=== PATIENT | female | born 1945 | race Hispanic/Latino ===

== ENCOUNTER 2020-01-20 17:26 | Emergency (ER) | payer MEDICARE ==
--- NOTE | 2020-01-20 17:53 | Emergency Department Report ---
HPI - General Time Seen by Provider: 01/20/20 17:40 - HPI HPI: 74-year-old female presents to the emergency department via EMS from [facility] where the patient was in group therapy as a 1013. The 1013 that was filled out by a manager social responsibility, Anahi Deleon, states that the has a "depressed affect, heightened anxiety, and verbalizes 'Im not myself'." It also says that the patient is "not attending to nutritional needs, toileting needs, wandering behaviors, aggressive behaviors" such as throwing feces. Patient is awake and oriented, AAO x3. She admits to a history of bipolar disorder and schizophrenia. It does not appear that the patient is compliant with her medications. She denies any current hallucinations or any homicidal or suicidal ideations. ED Review of Systems ROS: Stated complaint: [facility] Other details as noted in HPI Comment: All other systems reviewed and negative Constitutional: denies: chills, fever Respiratory: denies: cough, shortness of breath Cardiovascular: denies: chest pain, palpitations Gastrointestinal: denies: abdominal pain, vomiting Neurological: denies: headache, weakness Psychiatric: denies: auditory hallucinations, visual hallucinations, homicidal thoughts, suicidal thoughts Physical Exam - Physical Exam Physical Exam: GENERAL: The patient is well-developed well-nourished. HENT: Normocephalic. Atraumatic. Patient has moist mucous membranes. EYES: Extraocular motions are intact. NECK: Supple. Trachea is midline. CHEST/LUNGS: Clear to auscultation. There is no respiratory distress noted. HEART/CARDIOVASCULAR: Regular. There is no tachycardia. ABDOMEN: Abdomen is soft, nontender. Patient has normal bowel sounds. SKIN: Skin is warm and dry. NEURO: The patient is awake, alert, and oriented. Cranial nerves II through XII grossly intact. MUSCULOSKELETAL: There is no tenderness or deformity. PSYCH: Patient has some pressured speech and appears disorganized. ED Medical Decision Making - Lab Data Result diagrams: 01/20/20 18:00 01/20/20 18:00 - Medical Decision Making This patient was sent in from the [facility] as a 1013 secondary to some erratic and disorganized behavior. The patient is oriented to person, place, time but does display some disorganized thoughts and often has some pressured speech. She was seen by the psychiatric data center manager who agrees that the patient needs inpatient stabilization. The patient's labs thus far are unremarkable including CBC, metabolic panel and blood alcohol level. We are waiting for a urine sample for urinalysis and urine drug screen. If the patient has a UTI, she will need antibiotics. Otherwise I feel that the patient is medically cleared for psychiatric placement. Patient has been accepted to [facility]. Critical Care Time: No Critical care attestation.: If time is entered above; I have spent that time in minutes in the direct care of this critically ill patient, excluding procedure time. ED Disposition Clinical Impression: Acute psychosis Disposition: DC-01 TO HOME OR SELFCARE Is pt being admited?: No Condition: Stable Instructions: Bipolar Disorder (ED), Schizophrenia (ED) Additional Instructions: Please follow-up with your primary care physician and your psychiatrist soon as you are done with [facility] and able to do so. Return to the emergency department with any worsening of your symptoms, thoughts of harming herself or others, or with any acute distress. Time of Disposition: 00:25
[2020-01-20 18:12] LABS: Basophils # (Auto) 0.1 K/mm3 (0.0-0.1); Basophils % (Auto) 0.9 % (0.0-1.8); Eosinophils # (Auto) 0.1 K/mm3 (0.0-0.4); Eosinophils % (Auto) 1.5 % (0.0-4.3); Hematocrit 41.9 % (30.3-42.9); Lymphocytes # (Auto) 1.8 K/mm3 (1.2-5.4); Lymphocytes % (Auto) 21.1 % (13.4-35.0); Mean Corpuscular HGB Conc 34 % (30-34); Mean Corpuscular Volume 87 fl (79-97); Monocytes # (Auto) 0.6 K/mm3 (0.0-0.8); Monocytes % (Auto) 7.3 % (0.0-7.3); Platelet Count 317 K/mm3 (140-440)
[2020-01-20 18:56] LABS: BUN/Creatinine Ratio 15; Blood Urea Nitrogen 12 mg/dL (7-17); Calcium 9.3 mg/dL (8.4-10.2); Hemolysis Index 7
[2020-01-21 02:03] VITALS: BP 115/60
== END 2020-01-21 02:14 | disposition home or self-care (01) ==
LOC: ED 17:26
DX: F23 Brief psychotic disorder (principal)
CPT/HCPCS: 36415; 80048; 80320; 85025; G0480

== ENCOUNTER 2020-03-06 16:12 | Emergency (ER) | payer MEDICARE ==
--- NOTE | 2020-03-06 16:55 | Emergency Department Report ---
ED Fall HPI - General Chief Complaint: Extremity Injury, Upper Stated Complaint: RT ARM PAIN/DEMENTIA Time Seen by Provider: 03/06/20 16:41 Source: EMS Mode of arrival: Ambulatory Limitations: No Limitations - History of Present Illness Initial Comments: 74-year-old female with a past medical history of dementia, schizoaffective disorder, bipolar disorder [facility] from [facility] with complaints of right arm pain since fall several days ago. Patient states she was seen at a [facility] several days ago and prescribed Percocet however, it is not helping with pain. She denies head injury, headache, or neck pain. She is alert and oriented to person, place, and year. She presents with a diaper soiled in urine and states she is having difficulty changing her diaper/depends because of her right arm pain. pt's folder discovered at the bedside at 11:15pm Patient does present with discharge paperwork from [facility] from 02/28/2020 with diagnosis dislocation of right shoulder joint and closed fracture of the right humeral head with outpatient referral to orthopedics. Patient had x-rays of her right forearm, hand, humerus in the ED and apparently patient received procedural sedation with etomidate and a right arm sling was provided. Patient presents here without a right arm sling in place. Patient also has paperwork from [facility] from 03/02/2020 in which she received right elbow x-ray, shoulder x-ray, and right wrist x-rays and was diagnosed with avulsion fracture of the right humerus and prescribed Percocet for pain Current medication as per her discharge paperwork include Lasix, Zyprexa, Mysoline, and Percocet - Related Data Previous Rx's Medication Instructions Recorded Last Taken Type Divalproex Dr [Depakote Dr] 250 mg PO BID #60 tablet 01/27/20 Unknown Rx OLANzapine [ZyPREXA] 5 mg PO QDAY #30 tablet 01/27/20 Unknown Rx Propranolol LA [Inderal LA] 60 mg PO QDAY #30 capsule 01/27/20 Unknown Rx clonazePAM [KlonoPIN] 0.25 mg PO TID #90 tablet 01/27/20 Unknown Rx traZODone [Desyrel] 100 mg PO QHS #30 tablet 01/27/20 Unknown Rx Allergies Allergy/AdvReac Type Severity Reaction Status Date / Time No Known Allergies Allergy Unverified 01/20/20 20:30 ED Review of Systems ROS: Stated complaint: RT ARM PAIN/DEMENTIA Other details as noted in HPI Comment: All other systems reviewed and negative ED Past Medical Hx - Past Medical History Hx Renal Disease: No Hx Arthritis: No Hx Seizures: No Hx Dementia: No Additional medical history: bipolar - Surgical History Hx Cholecystectomy: No Hx Appendectomy: Yes Additional Surgical History: Tubal ligation - Social History Smoking Status: Never Smoker Substance Use Type: None - Medications Home Medications: Home Medications Medication Instructions Recorded Confirmed Last Taken Type Divalproex Dr [Depakote Dr] 250 mg PO BID #60 tablet 01/27/20 03/13/20 Unknown Rx OLANzapine [ZyPREXA] 5 mg PO QDAY #30 tablet 01/27/20 03/13/20 Unknown Rx Propranolol LA [Inderal LA] 60 mg PO QDAY #30 capsule 01/27/20 03/13/20 Unknown Rx clonazePAM [KlonoPIN] 0.25 mg PO TID #90 tablet 01/27/20 03/13/20 Unknown Rx traZODone [Desyrel] 100 mg PO QHS #30 tablet 01/27/20 03/13/20 Unknown Rx ED Physical Exam - General Limitations: Physical Limitation - Other Other exam information: General: No acute distress Head: Atraumatic Eyes: normal appearance ENT: Moist mucous membranes Neck: Normal appearance, no midline tenderness Chest: Clear to auscultation bilaterally, bruising to right upper lateral chest wall with tenderness to palpation CV: Regular rate and rhythm Abdomen: Soft, normal bowel sounds, nontender, nondistended, no rebound or guarding Back: Normal inspection Extremity: Tenderness to right shoulder and pain with movement of right shoulder in any direction. No tenderness to elbow, wrist, or hand able to move wrist and elbow with minimal pain Neuro: Alert O x 3, no facial asymmetry, speech clear, no gross motor sensory deficit Psych: Appropriate behavior Skin: No rash ED Course Vital Signs 03/06/20 03/06/20 03/06/20 16:51 19:34 19:41 Temperature 100.1 F H 98.7 F Pulse Rate 87 Respiratory 18 Rate Blood Pressure Blood Pressure 112/69 [Left] O2 Sat by Pulse 94 90 Oximetry 03/06/20 03/06/20 03/06/20 19:45 20:00 20:15 Temperature Pulse Rate 91 H 90 89 Respiratory 19 27 H 26 H Rate Blood Pressure 106/59 104/61 107/50 Blood Pressure [Left] O2 Sat by Pulse 96 95 93 Oximetry 03/06/20 03/06/20 03/06/20 20:30 20:45 21:00 Temperature Pulse Rate 77 76 77 Respiratory 28 H 22 24 Rate Blood Pressure 107/51 107/51 109/55 Blood Pressure [Left] O2 Sat by Pulse 95 Oximetry 03/06/20 03/06/20 03/06/20 21:15 21:30 21:45 Temperature Pulse Rate 75 88 87 Respiratory 27 H 24 33 H Rate Blood Pressure 109/55 107/55 107/55 Blood Pressure [Left] O2 Sat by Pulse 95 96 Oximetry 03/06/20 03/06/20 03/06/20 22:00 22:15 22:43 Temperature Pulse Rate 77 87 83 Respiratory 26 H 34 H 18 Rate Blood Pressure 104/55 104/55 104/55 Blood Pressure [Left] O2 Sat by Pulse 96 97 96 Oximetry 03/06/20 03/06/20 03/06/20 22:45 23:00 23:15 Temperature Pulse Rate 82 82 84 Respiratory 22 33 H 17 Rate Blood Pressure 104/55 109/50 104/55 Blood Pressure [Left] O2 Sat by Pulse 93 93 95 Oximetry 03/06/20 03/06/20 03/07/20 23:30 23:45 00:00 Temperature Pulse Rate 82 81 84 Respiratory 29 H 30 H 25 H Rate Blood Pressure 100/52 109/50 103/48 Blood Pressure [Left] O2 Sat by Pulse 98 95 97 Oximetry 03/07/20 03/07/20 03/07/20 00:15 04:31 06:01 Temperature Pulse Rate 84 88 89 Respiratory 21 15 22 Rate Blood Pressure 100/52 117/63 114/57 Blood Pressure [Left] O2 Sat by Pulse 95 96 96 Oximetry 03/07/20 03/07/20 03/07/20 07:15 07:31 07:45 Temperature Pulse Rate 92 H 93 H 89 Respiratory 18 15 22 Rate Blood Pressure 114/62 125/55 113/69 Blood Pressure [Left] O2 Sat by Pulse 96 93 95 Oximetry 03/07/20 03/07/20 03/07/20 09:01 09:15 10:45 Temperature Pulse Rate 73 86 87 Respiratory 25 H 19 21 Rate Blood Pressure 122/56 109/58 118/57 Blood Pressure [Left] O2 Sat by Pulse 97 97 96 Oximetry 03/07/20 03/07/20 03/07/20 11:01 11:31 12:15 Temperature Pulse Rate 85 91 H 87 Respiratory 26 H 18 18 Rate Blood Pressure 116/58 119/59 103/62 Blood Pressure [Left] O2 Sat by Pulse 97 96 96 Oximetry 03/07/20 03/07/20 03/07/20 12:31 12:45 13:31 Temperature Pulse Rate 96 H 86 95 H Respiratory 20 18 23 Rate Blood Pressure 102/63 115/56 114/61 Blood Pressure [Left] O2 Sat by Pulse 97 94 97 Oximetry 03/07/20 03/07/20 03/07/20 13:45 14:01 14:15 Temperature Pulse Rate 86 90 94 H Respiratory 26 H 22 15 Rate Blood Pressure 113/58 109/62 102/66 Blood Pressure [Left] O2 Sat by Pulse 97 97 95 Oximetry 03/07/20 03/07/20 08 15:31 16:23 21:59 Temperature Pulse Rate 101 H 93 H 17 L Respiratory 26 H 20 19 Rate Blood Pressure 124/70 Blood Pressure 113/63 116/57 [Left] O2 Sat by Pulse 95 98 97 Oximetry 03/07/20 03/08/20 03/08/20 22:01 03:05 03:08 Temperature Pulse Rate 84 Respiratory 19 Rate Blood Pressure 116/57 116/57 Blood Pressure 115/46 [Left] O2 Sat by Pulse 96 98 Oximetry 03/08/20 03/08/20 03/08/20 04:01 05:31 06:03 Temperature Pulse Rate Respiratory Rate Blood Pressure 90/64 115/46 104/52 Blood Pressure [Left] O2 Sat by Pulse 78 L 97 94 Oximetry 03/08/20 03/08/20 03/08/20 07:01 09:01 11:01 Temperature Pulse Rate Respiratory Rate Blood Pressure 104/52 106/46 142/64 Blood Pressure [Left] O2 Sat by Pulse 93 94 94 Oximetry 03/08/20 03/08/20 03/08/20 12:18 12:31 13:01 Temperature Pulse Rate 79 Respiratory 28 H Rate Blood Pressure 115/72 115/72 Blood Pressure 115/72 [Left] O2 Sat by Pulse 96 94 96 Oximetry 08/12/2103/08/20 03/08/20 13:30 14:01 14:31 Temperature Pulse Rate Respiratory Rate Blood Pressure 115/72 121/65 121/65 Blood Pressure [Left] O2 Sat by Pulse 80 L 87 78 L Oximetry 03/08/20 03/08/20 03/08/20 15:00 15:31 16:01 Temperature Pulse Rate Respiratory Rate Blood Pressure 121/65 121/65 119/62 Blood Pressure [Left] O2 Sat by Pulse 83 L 94 92 Oximetry 03/08/20 03/08/20 03/08/20 16:31 17:01 17:31 Temperature Pulse Rate Respiratory Rate Blood Pressure 119/62 119/62 119/62 Blood Pressure [Left] O2 Sat by Pulse 86 86 91 Oximetry 03/08/20 03/08/20 03/08/20 18:01 18:31 19:01 Temperature Pulse Rate Respiratory Rate Blood Pressure 114/72 114/72 114/72 Blood Pressure [Left] O2 Sat by Pulse 90 91 93 Oximetry 03/08/20 03/08/20 03/08/20 19:31 20:01 20:30 Temperature Pulse Rate Respiratory Rate Blood Pressure 114/72 117/63 117/63 Blood Pressure [Left] O2 Sat by Pulse 95 96 93 Oximetry 03/08/20 03/08/20 03/08/20 21:30 22:00 22:30 Temperature Pulse Rate Respiratory Rate Blood Pressure 117/63 117/63 117/63 Blood Pressure [Left] O2 Sat by Pulse 91 92 66 L Oximetry 03/08/20 03/09/20 03/09/20 22:44 00:00 00:30 Temperature Pulse Rate 86 80 Respiratory 29 H 30 H Rate Blood Pressure 117/63 109/61 109/61 Blood Pressure [Left] O2 Sat by Pulse 97 100 100 Oximetry 03/09/20 03/09/20 03/09/20 02:00 04:00 06:00 Temperature Pulse Rate 82 76 75 Respiratory 19 29 H 28 H Rate Blood Pressure 109/54 102/50 108/52 Blood Pressure [Left] O2 Sat by Pulse 96 97 99 Oximetry 03/09/20 03/09/20 03/09/20 08:00 10:00 12:00 Temperature Pulse Rate 75 80 84 Respiratory 27 H 24 24 Rate Blood Pressure 105/54 122/66 112/35 Blood Pressure [Left] O2 Sat by Pulse 100 97 99 Oximetry 08/06/20 08/06/20 08/06/20 14:00 16:00 18:00 Temperature Pulse Rate 87 79 94 H Respiratory 25 H 29 H 32 H Rate Blood Pressure 116/59 103/53 109/52 Blood Pressure [Left] O2 Sat by Pulse 96 95 96 Oximetry 03/09/20 03/09/20 03/09/20 20:00 21:20 22:00 Temperature Pulse Rate 88 82 89 Respiratory 43 H 36 H 22 Rate Blood Pressure 107/59 107/59 101/51 Blood Pressure [Left] O2 Sat by Pulse 95 96 97 Oximetry 03/10/20 03/10/20 03/10/20 00:00 02:00 04:01 Temperature Pulse Rate 133 H 82 91 H Respiratory 42 H 20 19 Rate Blood Pressure 116/47 114/53 Blood Pressure [Left] O2 Sat by Pulse 96 98 94 Oximetry 03/10/20 03/10/20 03/10/20 06:01 08:01 10:01 Temperature Pulse Rate 82 75 Respiratory 34 H 36 H Rate Blood Pressure 113/51 128/47 112/41 Blood Pressure [Left] O2 Sat by Pulse 98 98 96 Oximetry 03/10/20 12:01 Temperature Pulse Rate 83 Respiratory 33 H Rate Blood Pressure 99/54 Blood Pressure [Left] O2 Sat by Pulse 99 Oximetry - Reevaluation(s) Reevaluation #1: 03/06/20 16:55 Patient has dementia with recent fall history and recent ER evaluation at [facility]. Patient does have underlying dementia. Unable to access recent medical records and given patient's underlying dementia and will receive CT head and cervical spine in addition to x-rays - Consultations Consultation #1: 03/06/20 23:[address] Haile documentation manager surgeon. Recommends transfer to trauma center and given the fact that patient may be be developing an empyema as well as persistent traumatic fracture/dislocation of the right humerus 03/07/20 23: [address] Mckenna trauma attending about patient's pulmonary contusion. She states that since injury occurred 1 week ago, she is asymptomatic (no shortness of breath), and she does not have hypoxia she does not require transfer to a trauma hospital or even hospital admission 03/07/20 23:30 Case discussed with on-call orthopedic surgeon Dr. Goldman who states that since injury occurred 1 week ago with persistent fracture dislocation with hematoma she may follow-up in the office. 03/07/20 23:50 Case to be discussed with Dr. Haile regarding trauma attending recommendation ED Medical Decision Making - Lab Data Result diagrams: 03/10/20 11:12 03/10/20 11:12 Lab Results 03/06/20 03/06/20 03/06/20 Range/Units 17:31 17:31 17:31 WBC 19.8 H (4.5-11.0) K/mm3 RBC 3.56 L (3.65-5.03) M/mm3 Hgb 10.0 L (10.1-14.3) gm/dl Hct 31.3 (30.3-42.9) % MCV 88 (79-97) fl MCH 28 (28-32) pg MCHC 32 (30-34) % RDW 18.4 H (13.2-15.2) % Plt Count 442 H (140-440) K/mm3 Add Manual Diff Complete Total Counted 100 Seg Neutrophils % Pc Technician Seg Neuts % (Manual) 89.0 H (40.0-70.0) % Band Neutrophils % 0 % Lymphocytes % (Manual) 6.0 L (13.4-35.0) % Reactive Lymphs % (Man) 0 % Monocytes % (Manual) 5.0 (0.0-7.3) % Eosinophils % (Manual) 0 (0.0-4.3) % Basophils % (Manual) 0 (0.0-1.8) % Metamyelocytes % 0 % Myelocytes % 0 % Promyelocytes % 0 % Blast Cells % 0 % Nucleated RBC % Not Reportable Seg Neutrophils # Man 17.6 H (1.8-7.7) K/mm3 Band Neutrophils # 0.0 K/mm3 Lymphocytes # (Manual) 1.2 (1.2-5.4) K/mm3 Abs React Lymphs (Man) 0.0 K/mm3 Monocytes # (Manual) 1.0 H (0.0-0.8) K/mm3 Eosinophils # (Manual) 0.0 (0.0-0.4) K/mm3 Basophils # (Manual) 0.0 (0.0-0.1) K/mm3 Metamyelocytes # 0.0 K/mm3 Myelocytes # 0.0 K/mm3 Promyelocytes # 0.0 K/mm3 Blast Cells # 0.0 K/mm3 WBC Morphology Not Reportable Hypersegmented Neuts Not Reportable Hyposegmented Neuts Not Reportable Hypogranular Neuts Not Reportable Smudge Cells Not Reportable Toxic Granulation Not Reportable Toxic Vacuolation Not Reportable Dohle Bodies Not Reportable Pelger-Huet Anomaly Not Reportable Jet Rods Not Reportable Platelet Estimate Not Reportable Clumped Platelets Not Reportable Plt Clumps, EDTA Not Reportable Large Platelets Not Reportable Giant Platelets Not Reportable Platelet Satelliting Not Reportable Plt Morphology Comment Not Reportable RBC Morphology Normal Dimorphic RBCs Not Reportable Polychromasia Not Reportable Hypochromasia Not Reportable Poikilocytosis Not Reportable Anisocytosis Not Reportable Microcytosis Not Reportable Macrocytosis Not Reportable Spherocytes Not Reportable Pappenheimer Bodies Not Reportable Sickle Cells Not Reportable Target Cells Not Reportable Tear Drop Cells Not Reportable Ovalocytes Not Reportable Helmet Cells Not Reportable Raines[place] Bodies Not Reportable [place] Rings Not Reportable [place] Cells Not Reportable Bite Cells Not Reportable Crenated Cell Not Reportable Elliptocytes Not Reportable Acanthocytes (Spur) Not Reportable Rouleaux Not Reportable Hemoglobin C Crystals Not Reportable Schistocytes Not Reportable Malaria parasites Not Reportable Alberto Bodies Not Reportable Hem Pathologist Commnt No PT (12.2-14.9) Sec. INR (0.87-1.13) APTT (24.2-36.6) Sec. Sodium 130 L (137-145) mmol/L Potassium 3.1 L (3.6-5.0) mmol/L Chloride 84.0 L (98-107) mmol/L Carbon Dioxide 29 (22-30) mmol/L Anion Gap 20 mmol/L BUN 18 H (7-17) mg/dL Creatinine 0.8 (0.6-1.2) mg/dL Estimated GFR > 60 ml/min BUN/Creatinine Ratio 23 % Glucose 102 H (65-100) mg/dL Calcium 8.6 (8.4-10.2) mg/dL Magnesium 2.20 (1.7-2.3) mg/dL Urine Color (Yellow) Urine Turbidity (Clear) Urine pH (5.0-7.0) Ur Specific [place] (1.003-1.030) Urine Protein (Negative) mg/dL Urine Glucose (UA) (Negative) mg/dL Urine Ketones (Negative) mg/dL Urine Blood (Negative) Urine Nitrite (Negative) Urine Bilirubin (Negative) Urine Urobilinogen (<2.0) mg/dL Ur Leukocyte Esterase (Negative) Urine WBC (Auto) (0.0-6.0) /HPF Urine RBC (Auto) (0.0-6.0) /HPF U Epithel Cells (Auto) (0-13.0) /HPF Urine Bacteria (Auto) (Negative) /HPF Urine Mucus /HPF 03/06/20 03/06/20 Range/Units 18:51 23:34 WBC (4.5-11.0) K/mm3 RBC (3.65-5.03) M/mm3 Hgb (10.1-14.3) gm/dl Hct (30.3-42.9) % MCV (79-97) fl MCH (28-32) pg MCHC (30-34) % RDW (13.2-15.2) % Plt Count (140-440) K/mm3 Add Manual Diff Total Counted Seg Neutrophils % Seg Neuts % (Manual) (40.0-70.0) % Band Neutrophils % % Lymphocytes % (Manual) (13.4-35.0) % Reactive Lymphs % (Man) % Monocytes % (Manual) (0.0-7.3) % Eosinophils % (Manual) (0.0-4.3) % Basophils % (Manual) (0.0-1.8) % Metamyelocytes % % Myelocytes % % Promyelocytes % % Blast Cells % % Nucleated RBC % Seg Neutrophils # Man (1.8-7.7) K/mm3 Band Neutrophils # K/mm3 Lymphocytes # (Manual) (1.2-5.4) K/mm3 Abs React Lymphs (Man) K/mm3 Monocytes # (Manual) (0.0-0.8) K/mm3 Eosinophils # (Manual) (0.0-0.4) K/mm3 Basophils # (Manual) (0.0-0.1) K/mm3 Metamyelocytes # K/mm3 Myelocytes # K/mm3 Promyelocytes # K/mm3 Blast Cells # K/mm3 WBC Morphology Hypersegmented Neuts Hyposegmented Neuts Hypogranular Neuts Smudge Cells Toxic Granulation Toxic Vacuolation Dohle Bodies Pelger-Huet Anomaly Jet Rods Platelet Estimate Clumped Platelets Plt Clumps, EDTA Large Platelets Giant Platelets Platelet Satelliting Plt Morphology Comment RBC Morphology Dimorphic RBCs Polychromasia Hypochromasia Poikilocytosis Anisocytosis Microcytosis Macrocytosis Spherocytes Pappenheimer Bodies Sickle Cells Target Cells Tear Drop Cells Ovalocytes Helmet Cells Raines-[place] Bodies [place] Rings Gladys Cells Bite Cells Crenated Cell Elliptocytes Acanthocytes (Spur) Rouleaux Hemoglobin C Crystals Schistocytes Malaria parasites Alberto Bodies Hem Pathologist Commnt PT 16.9 H (12.2-14.9) Sec. INR 1.36 H (0.87-1.13) APTT 32.4 (24.2-36.6) Sec. Sodium (137-145) mmol/L Potassium (3.6-5.0) mmol/L Chloride (98-107) mmol/L Carbon Dioxide (22-30) mmol/L Anion Gap mmol/L BUN (7-17) mg/dL Creatinine (0.6-1.2) mg/dL Estimated GFR ml/min BUN/Creatinine Ratio % Glucose (65-100) mg/dL Calcium (8.4-10.2) mg/dL Magnesium (1.7-2.3) mg/dL Urine Color Yellow (Yellow) Urine Turbidity Slightly-cloudy (Clear) Urine pH 5.0 (5.0-7.0) Ur Specific [place] 1.014 (1.003-1.030) Urine Protein <15 mg/dl (Negative) mg/dL Urine Glucose (UA) Neg (Negative) mg/dL Urine Ketones Tr (Negative) mg/dL Urine Blood Sm (Negative) Urine Nitrite Neg (Negative) Urine Bilirubin Neg (Negative) Urine Urobilinogen 2.0 (<2.0) mg/dL Ur Leukocyte Esterase Neg (Negative) Urine WBC (Auto) 2.0 (0.0-6.0) /HPF Urine RBC (Auto) 1.0 (0.0-6.0) /HPF U Epithel Cells (Auto) < 1.0 (0-13.0) /HPF Urine Bacteria (Auto) 1+ (Negative) /HPF Urine Mucus Few /HPF - Radiology Data Radiology results: report reviewed CT head/brain wo con INDICATION / CLINICAL INFORMATION: 74 years Female; recent fall, dementia. TECHNIQUE: Routine CT head without contrast. All CT scans at this location are performed using CT dose reduction for ALARA by means of automated exposure control. COMPARISON: None. FINDINGS: BRAIN / INTRACRANIAL CONTENTS: No acute hemorrhage, mass effect, midline shift, hydrocephalus, or ac [place], large territorial infarct. No chronic infarct or atrophy appreciated. Mild, nonspecific white matter disease suggested. CRANIOCERVICAL JUNCTION: No significant abnormality. ORBITS: Prior trauma seen to the right lateral orbit and anterior zygomatic region. Small metallic fragments seen. Please clinically correlate. SINUSES / MASTOIDS: Mild mucosal thickening seen in the right mastoid air cells. ADDITIONAL FINDINGS: None. IMPRESSION: 1. No focal mass, hemorrhage, hydrocephalus, or acute, large territorial infarct. CT cervical spine wo con INDICATION / CLINICAL INFORMATION: 74 years Female; recent fall, dementia. TECHNIQUE: Axial CT images of the cervical spine were obtained. Sagittal and coronal reformatted images were produced. All CT scans at this location are performed using CT dose reduction for ALARA by means of automated exposure control. COMPARISON: None available. FINDINGS: POST-SURGICAL CHANGES: None. ALIGNMENT: Normal cervical lordosis seen without significant scoliosis. VERTEBRAE: No signs of fracture. Vertebral bodies are grossly normal in height throughout. Mild osseous foraminal narrowing on the left at C3-4 from uncinate hypertrophy. Minimal findings at C4-5 and C5-6 as well. There are also similar findings on the left from C3-4 through C6-7-mild uncinate hypertrophy. INTRAVERTEBRAL DISCS: Disc space narrowing seen at C3-4. No significant canal stenosis noted. PARASPINAL SOFT TISSUES: No significant abnormality. ADDITIONAL FINDINGS: Increased interstitial markings seen in the right supraclavicular region-cellulitis or interstitial edema might be consideration. Please clinically correlate. Bilateral temporomandibular joint disease noted. IMPRESSION: 1. No signs of acute bony trauma to the cervical spine. Procedure(s): XR shoulder 2+V RT Accession Number(s): [id number] cc: LILLIAM Martinez MD Fluoro Time In Minutes: CLINICAL DATA: fall, pain TECHNICAL DATA: AP internal, AP external, and Y views were obtained of the shoulder. FINDINGS: Osseous densities present upper portion of the articulation with a defect involving the posterior aspect of the humerus. Questionable dislocation of the humeral head There is no acromioclavicular joint widening or offset. The coracoclavicular distance is normal. There are no significant degenerative changes. IMPRESSION: Probable humeral fracture-fracture dislocation age difficult determine. CT may be of benefit for further evaluation Procedure(s): XR humerus 2+V RT Accession Number(s): [id number] cc: LILLIAM COX MD Fluoro Time In Minutes: HISTORY:fall, pain COMPARISON: None. TECHNIQUE: AP lateral and obliques views were obtained FINDINGS: Bones: Fracture posterior aspect of the head of the humerus Joint spaces: Questionable dislocation. Soft tissues: No significant abnormality. Additional findings: None. IMPRESSION: 1. Fracture-possible fracture dislocation Procedure(s): XR forearm RT Accession Number(s): [id number] cc: LILLIAM BURT MD Fluoro Time In Minutes: HISTORY:fall, pain COMPARISON: TECHNIQUE: AP lateral and obliques views were obtained FINDINGS: Bones: No fracture or dislocation. Joint spaces: Maintained. Soft tissues: No significant abnormality. Additional findings: None. IMPRESSION: 1. No significant abnormality. CHEST 1 VIEW INDICATION: right upper chest bruising s/p fall COMPARISON: None FINDINGS: SUPPORT DEVICES: None. HEART / MEDIASTINUM: No significant abnormality. LUNGS / PLEURA: Round densities present right lower lobe possibly representing pulmonary contusion-hemorrhage. Recommend CT for further evalu ation. No pneumothorax. ADDITIONAL FINDINGS: IMPRESSION: 1. Right lower lobe pulmonary contusion-pulmonary hemorrhage recommend CT with intravenous contrast for further evaluation. Pneumonia-neoplasm could have a similar appearance Procedure(s): CT chest w con Accession Number(s): [id number] cc: LILLIAM BURT MD CT CHEST WITH CONTRAST INDICATION / CLINICAL INFORMATION: abnormal cxr Right hematoma vs neoplasm. TECHNIQUE: Axial CT images were obtained through the chest after IV contrast. All CT scans at this location are performed using CT dose reduction for ALARA by means of automated exposure control. COMPARISON: Chest imaging earlier today FINDINGS: HEART: No significant abnormality. THORACIC AORTA: No significant abnormality. MEDIASTINUM and HIGINIO: No significant abnormality. LUNGS: Peripheral airspace process right lower lobe with associated right pleural effusion, traumatic contusion-hemorrhage is a concern PLEURA: No significant pleural effusion. No pneumothorax. ADDITIONAL FINDINGS: Complex fracture dislocation humeral head glenoid fossa with a large hematoma UPPER ABDOMEN: No significant abnormality. SKELETAL SYSTEM: Complex fracture dislocat ion humeral head glenoid fossa with a large hematoma IMPRESSION: 1. Traumatic changes right hemithorax with pulmonary contusion-hemorrhage right lower lobe with associated complex fracture dislocation humeral head glenoid fossa with a large surrounding hematoma - Medical Decision Making After ED work-up patient is identified to have a persistent right humerus fracture and dislocation x1 week. Patient also has a right-sided pulmonary contusion newly diagnosed but likely persistent x1 week since her fall. Patient is not complained of shortness of breath or hypoxia. She has a leukocytosis without any identifiable source and denies infectious symptoms. Patient arrived soiled in urine and EMS [facility]. [facility] states [facility] to the [facility]. We do not have a telephone number for the [facility] to speak to the supervisors regarding return back to the facility. At this time patient does not meet criteria for admission however I am concerned about patient's abil ity to care for herself and that she may need additional support given that she has this right arm injury and underlying psychiatric issues. Also patient's current living conditions do not appear to be safe. Patient held here for case management consult in a.m. current medications will be continued with exception of her lasix 40mg. pt is refusing to wear a shoulder immobilizer as ordered. Patient did receive p.o. potassium for mild hypokalemia. Patient also noted to have mild hyponatremia. Received 1 L normal saline. Patient is repeatedly asking for and wanting to drink a lot of water during her ED stay Critical Care Time: No Critical care attestation.: If time is entered above; I have spent that time in minutes in the direct care of this critically ill patient, excluding procedure time. ED Disposition Clinical Impression: Closed fracture of right proximal humerus, Dislocation of right shoulder joint, Right pulmonary contusion, Leukocytosis, Hypokalemia Disposition: - TO HOME OR SELFCARE Is pt being admited?: No Does the pt Need Aspirin: No Condition: Stable Instructions: Arm Fracture in Adults (ED), Shoulder Dislocation (ED), Hypokalemia (ED), Pulmonary Contusion (ED) Referrals: YOSI GOLDSTEIN MD [Primary Care Provider] - 3-5 Days NEFTALY GOLDMAN MD [Staff Physician] - 3-5 Days
--- NOTE | 2020-03-06 17:38 | XRay Report ---
CHEST 1 VIEW INDICATION: right upper chest bruising s/p fall COMPARISON: None FINDINGS: SUPPORT DEVICES: None. HEART / MEDIASTINUM: No significant abnormality. LUNGS / PLEURA: Round densities present right lower lobe possibly representing pulmonary contusion-he morrhage. Recommend CT for further evaluation. No pneumothorax. ADDITIONAL FINDINGS: IMPRESSION: 1. Right lower lobe pulmonary contusion-pulmonary hemorrhage recommend CT with intravenous contrast f or further evaluation. Pneumonia-neoplasm could have a similar appearance Signer Name: Christian Jesus MD Signed: 03/06/2020 5:33 PM Workstation Name: [id number]
--- NOTE | 2020-03-06 17:40 | XRay Report ---
HISTORY:fall, pain COMPARISON: TECHNIQUE: AP lateral and obliques views were obtained FINDINGS: Bones: No fracture or dislocation. Joint spaces: Maintained. Soft tissues: No significant abnormality. Additional findings: None. IMPRESSION: 1. No significant abnormality. Signer Name: Christian Jesus MD Signed: 03/06/2020 5:35 PM Workstation Name: [id number]
--- NOTE | 2020-03-06 17:41 | XRay Report ---
HISTORY:fall, pain COMPARISON: None. TECHNIQUE: AP lateral and obliques views were obtained FINDINGS: Bones: Fracture posterior aspect of the head of the humerus Joint spaces: Questionable dislocation. Soft tissues: No significant abnormality. Additional findings: None. IMPRESSION: 1. Fracture-possible fracture dislocation Signer Name: Christian Jesus MD Signed: 03/06/2020 5:37 PM Workstation Name: [id number]
--- NOTE | 2020-03-06 17:42 | XRay Report ---
CLINICAL DATA: fall, pain TECHNICAL DATA: AP internal, AP external, and Y views were obtained of the shoulder. FINDINGS: Osseous densities present upper portion of the articulation with a defect involving the posterior asp ect of the humerus. Questionable dislocation of the humeral head There is no acromioclavicular joint widening or offset. The coracoclavicular distance is normal. There are no significant degenerative ch anges. IMPRESSION: Probable humeral fracture-fracture dislocation age difficult determine. CT may be of benefit for furt her evaluation Signer Name: Christian Jesus MD Signed: 03/06/2020 5:37 PM Workstation Name: [id number]
--- NOTE | 2020-03-06 18:07 | Cat Scan Report ---
CT head/brain wo con INDICATION / CLINICAL INFORMATION: 74 years Female; recent fall, dementia. TECHNIQUE: Routine CT head without contrast. All CT scans at this location are performed using CT dos e reduction for ALARA by means of automated exposure control. COMPARISON: None. FINDINGS: BRAIN / INTRACRANIAL CONTENTS: No acute hemorrhage, mass effect, midline shift, hydrocephalus, or acu te, large territorial infarct. No chronic infarct or atrophy appreciated. Mild, nonspecific white mat ter disease suggested. CRANIOCERVICAL JUNCTION: No significant abnormality. ORBITS: Prior trauma seen to the right lateral orbit and anterior zygomatic region. Small metallic fr agments seen. Please clinically correlate. SINUSES / MASTOIDS: Mild mucosal thickening seen in the right mastoid air cells. ADDITIONAL FINDINGS: None. IMPRESSION: 1. No focal mass, hemorrhage, hydrocephalus, or acute, large territorial infarct. Signer Name: Spencer Dela Cruz MD, III Signed: 03/06/2020 6:03 PM Workstation Name: [id number]
--- NOTE | 2020-03-06 18:11 | Cat Scan Report ---
CT cervical spine wo con INDICATION / CLINICAL INFORMATION: 74 years Female; recent fall, dementia. TECHNIQUE: Axial CT images of the cervical spine were obtained. Sagittal and coronal reformatted images were pr oduced. All CT scans at this location are performed using CT dose reduction for ALARA by means of aut omated exposure control. COMPARISON: None available. FINDINGS: POST-SURGICAL CHANGES: None. ALIGNMENT: Normal cervical lordosis seen without significant scoliosis. VERTEBRAE: No signs of fracture. Vertebral bodies are grossly normal in height throughout. Mild osseous foraminal narrowing on the left at C3-4 from uncinate hypertrophy. Minimal findings at C 4-5 and C5-6 as well. There are also similar findings on the left from C3-4 through C6-7-mild uncinat e hypertrophy. INTRAVERTEBRAL DISCS: Disc space narrowing seen at C3-4. No significant canal stenosis noted. PARASPINAL SOFT TISSUES: No significant abnormality. ADDITIONAL FINDINGS: Increased interstitial markings seen in the right supraclavicular region-celluli tis or interstitial edema might be consideration. Please clinically correlate. Bilateral temporomandibular joint disease noted. IMPRESSION: 1. No signs of acute bony trauma to the cervical spine. Signer Name: Spencer Dela Cruz MD, III Signed: 03/06/2020 6:07 PM Workstation Name: [id number]
[2020-03-06 18:21] LABS: Hematocrit 31.3 % (30.3-42.9); Mean Corpuscular HGB Conc 32 % (30-34); Mean Corpuscular Volume 88 fl (79-97); Platelet Count 442 K/mm3 (140-440); Red Blood Count 3.56 M/mm3 (3.65-5.03); Red Cell Distribution Width 18.4 % (13.2-15.2)
[2020-03-06 18:39] LABS: BUN/Creatinine Ratio 23; Blood Urea Nitrogen 18 mg/dL (7-17); Calcium 8.6 mg/dL (8.4-10.2); Hemolysis Index 0
[2020-03-06] MEDS ORDERED: SODIUM CHLORIDE 0.9% 1000 ML 1,000 ML IV ONE (18:59)
[2020-03-06] MEDS ORDERED: POTASSIUM CHLORIDE ER 20 MEQ TAB PO ONE (18:59)
[2020-03-06 19:11] LABS: Basophils % (Manual) 0 % (0.0-1.8); Eosinophils % (Manual) 0 % (0.0-4.3); RBC Morphology Normal; Total Cells Counted 100
[2020-03-06 19:40] LABS: Bacteria,Urine 1+ /HPF (Negative); Bilirubin,Urine NEG (Negative); Blood,Urine SM (Negative); Color,Urine Yellow (Yellow); Mucus,Urine FEW /HPF; Protein,Urine <15 mg/dL mg/dL (Negative)
--- NOTE | 2020-03-06 22:53 | Cat Scan Report ---
CT CHEST WITH CONTRAST INDICATION / CLINICAL INFORMATION: abnormal cxr Right hematoma vs neoplasm. TECHNIQUE: Axial CT images were obtained through the chest after IV contrast. All CT scans at this location are performed using CT dose reduction for ALARA by means of automated exposure control. COMPARISON: Chest imaging earlier today FINDINGS: HEART: No significant abnormality. THORACIC AORTA: No significant abnormality. MEDIASTINUM and HIGINIO: No significant abnormality. LUNGS: Peripheral airspace process right lower lobe with associated right pleural effusion, traumatic contusion-hemorrhage is a concern PLEURA: No significant pleural effusion. No pneumothorax. ADDITIONAL FINDINGS: Complex fracture dislocation humeral head glenoid fossa with a large hematoma UPPER ABDOMEN: No significant abnormality. SKELETAL SYSTEM: Complex fracture dislocation humeral head glenoid fossa with a large hematoma IMPRESSION: 1. Traumatic changes right hemithorax with pulmonary contusion-hemorrhage right lower lobe with assoc iated complex fracture dislocation humeral head glenoid fossa with a large surrounding hematoma Signer Name: Christian Jesus MD Signed: 03/06/2020 10:49 PM Workstation Name: [id number]
[2020-03-07 00:33] LABS: INR 1.36 (0.87-1.13)
[2020-03-07 00:34] LABS: Partial Thromboplastin Time 32.4 Sec. (24.2-36.6)
[2020-03-07] MEDS ORDERED: oxyCODONE /ACETAMINOPHEN 5-325MG TAB PO PRN (02:11)
[2020-03-07] MEDS ORDERED: POTASSIUM CHLORIDE ER 20 MEQ TAB PO ONE ×2 (08:00→11:30)
[2020-03-07] MEDS: PRIMIDONE 50 MG TAB PO SCH (21:59)
--- NOTE | 2020-03-08 11:25 | XRay Report ---
CHEST 1 VIEW INDICATION / CLINICAL INFORMATION: Cough. COMPARISON: 03/06/2020 FINDINGS: SUPPORT DEVICES: None. HEART / MEDIASTINUM: Unchanged LUNGS / PLEURA: There is persistent airspace opacity in the right lower lung zone. This corresponds t o the abnormality seen on chest CT and appears similar to the chest CT performed on 03/06/2020 given di fferences in positioning. The left lung is clear. The upper lung zones are clear. No pneumothorax. ADDITIONAL FINDINGS: No significant additional findings. IMPRESSION: 1. There is persistent parenchymal opacity in the right lower lung zone this is unchanged from 03/06/20 20. This may represent pulmonary contusion related to chest trauma. Follow-up radiograph should be ob tained next several weeks to ensure complete clearing of the lungs. Signer Name: Oral Canas MD Signed: 03/08/2020 11:21 AM Workstation Name: [id number]
[2020-03-08] MEDS: PRIMIDONE 50 MG TAB PO SCH (23:39)
[2020-03-10] MEDS: PRIMIDONE 50 MG TAB PO SCH (06:21)
[2020-03-10 11:34] LABS: Hematocrit 31.3 % (30.3-42.9); Hemoglobin 10.1 gm/dl (10.1-14.3); Mean Corpuscular HGB Conc 32 % (30-34); Mean Corpuscular Volume 88 fl (79-97); Platelet Count 632 K/mm3 (140-440); Red Blood Count 3.56 M/mm3 (3.65-5.03)
[2020-03-10 11:46] LABS: Alanine Aminotransferase 30 units/L (7-56); Albumin 2.1 g/dL (3.9-5); Blood Urea Nitrogen 20 mg/dL (7-17); Hemolysis Index 26
--- NOTE | 2020-03-10 11:46 | XRay Report ---
CHEST 1 VIEW 03/10/2020 10:34 AM INDICATION / CLINICAL INFORMATION: hx of pulmonary contusion. COMPARISON: One view of the chest from 03/08/2020. CT chest with contrast from 03/06/2020. FINDINGS: SUPPORT DEVICES: None. HEART / MEDIASTINUM: No significant abnormality. LUNGS / PLEURA: Right basilar opacities have slightly improved. The lungs are otherwise clear. No sig nificant pleural effusion. No pneumothorax. ADDITIONAL FINDINGS: A right humeral head fracture is again seen. No significant additional findings. IMPRESSION: Slightly improved aeration of the right lung base. No new acute abnormality of the chest. Signer Name: Alan Sanford MD Signed: 03/10/2020 11:41 AM Workstation Name: [id number]
[2020-03-10 11:47] LABS: BUN/Creatinine Ratio 33
[2020-03-10 12:31] VITALS: BP 99/54
[2020-03-10 12:43] LABS: Anisocytosis 1+; Band Neutrophils # (Manual) 0.3 K/mm3; Platelet Estimate Consistent w Auto; Total Cells Counted 100
== END 2020-03-10 19:00 | disposition home or self-care (01) ==
LOC: ED 16:12
DX: S42.201A Unspecified fracture of upper end of right humerus, initial encounter for closed fracture (principal); T84.028A Dislocation of other internal joint prosthesis, initial encounter; S27.321A Contusion of lung, unilateral, initial encounter; D72.829 Elevated white blood cell count, unspecified; E87.6 Hypokalemia; F03.90 Unspecified dementia, unspecified severity, without behavioral disturbance, psychotic disturbance, mood disturbance, and anxiety; Z90.49 Acquired absence of other specified parts of digestive tract; Z98.51 Tubal ligation status; Z79.899 Other long term (current) drug therapy
CPT/HCPCS: 36415; 70450; 71045; 71260; 72125; 73030; 73060; 73090; 80048; 80053; 81001; 83735; 85007; 85025; 85610; 85730; 96360; 96361; 99285; J7030; Q9967; U0003

== ENCOUNTER 2020-03-22 21:56 | Emergency (ER) | payer MEDICARE ==
[2020-03-23 08:03] VITALS: BP 105/57
--- NOTE | 2020-03-23 08:17 | Emergency Department Report ---
HPI - General Chief Complaint: Urogenital-Female Time Seen by Provider: 03/23/20 08:08 - [facility] HPI: Room 17 The patient is a 74-year-old female sent from her personal [facility] for chief complaint of "my catheter is dirty." The patient states she was sent by her personal m[facility] to have her Willoughby changed. ED Past Medical Hx - Past Medical History Hx Congestive Heart Failure: Yes Hx Psychiatric Treatment: Yes (Bipolar) Additional medical history: bipolar - Surgical History Hx Appendectomy: Yes Additional Surgical History: Tubal ligation - Family History Family history: no significant - Social History Smoking Status: Never Smoker Substance Use Type: None - Medications Home Medications: Home Medications Medication Instructions Recorded Confirmed Last Taken Type Divalproex Dr [Depakote Dr] 250 mg PO BID #60 tablet 01/27/20 03/13/20 Unknown Rx levoFLOXacin [Levaquin] 750 mg PO QDAY #4 tablet 03/16/[address] [DepaKOTE DR] 250 mg PO BID #60 tablet 03/18/20 Unknown Rx clonazePAM [KlonoPIN] 0.25 mg PO TID #90 tablet 03/18/20 Unknown Rx levoFLOXacin [Levaquin] 250 mg PO QDAY #7 tablet 03/23/20 Unknown Rx ED Review of Systems ROS: Stated complaint: CATHETER REPLACEMENT Other details as noted in HPI Constitutional: no symptoms reported Respiratory: no symptoms reported Endocrine: no symptoms reported Musculoskeletal: arthralgia Physical Exam - Physical Exam Vital Signs: Vital Signs 03/23/20 08:02 Temperature 97.6 F Pulse Rate 99 H Respiratory 16 Rate Blood Pressure 105/57 [Left] O2 Sat by Pulse 99 Oximetry Physical Exam: GENERAL: The patient is well-developed well-nourished female lying on stretcher not appearing to be in acute distress. [] HEENT: Normocephalic. Atraumatic. Extraocular motions are intact. Patient has moist mucous membranes. NECK: Supple. Trachea midline CHEST/LUNGS: Clear to auscultation. There is no respiratory distress noted. HEART/CARDIOVASCULAR: Regular. There is no tachycardia. There is no gallop rub or murmur. ABDOMEN: Abdomen is soft, nontender. Patient has normal bowel sounds. There is no abdominal distention. SKIN: There is no rash. There is no edema. There is no diaphoresis. NEURO: The patient is awake, alert, and oriented. The patient is cooperative. The patient has normal speech ED Course Vital Signs 03/23/20 08:02 Temperature 97.6 F Pulse Rate 99 H Respiratory 16 Rate Blood Pressure 105/57 [Left] O2 Sat by Pulse 99 Oximetry ED Medical Decision Making - Lab Data Laboratory Tests 03/23/20 10:39 Urine Color [place] Urine Turbidity Slightly-cloudy Urine pH 6.0 Ur Specific [place] 1.026 Urine Protein 100 mg/dl Urine Glucose (UA) Neg Urine Ketones 20 Urine Blood Sm Urine Nitrite Neg Urine Bilirubin Neg Urine Urobilinogen 4.0 Ur Leukocyte Esterase Sm Urine WBC (Auto) 9.0 H Urine RBC (Auto) 13.0 U Epithel Cells (Auto) 8.0 Urine Bacteria (Auto) 1+ Urine Mucus 3+ - Differential Diagnosis Willoughby change, Critical care attestation.: If time is entered above; I have spent that time in minutes in the direct care of this critically ill patient, excluding procedure time. ED Disposition Clinical Impression: Encounter for assessment of Willoughby catheter, UTI (urinary tract infection) Disposition: DC-01 TO HOME OR SELFCARE Is pt being admited?: No Does the pt Need Aspirin: No Condition: Stable Instructions: Urinary Tract Infection in Women (ED) Additional Instructions: Return to the emergency department should you develop worsening symptoms, inability to tolerate food or liquids, high fever or any other concerns Prescriptions: levoFLOXacin [Levaquin] 250 mg PO QDAY #7 tablet Referrals: PRIMARY CARE, [Primary Care Provider] - 3-5 Days Time of Disposition: 11:26
[2020-03-23] MEDS ORDERED: traMADol 50 MG TAB PO ONE (09:33)
[2020-03-23 10:54] LABS: Bacteria,Urine 1+ /HPF (Negative); Bilirubin,Urine NEG (Negative); Blood,Urine SM (Negative); Color,Urine Amber (Yellow); Mucus,Urine 3+ /HPF
== END 2020-03-23 13:45 | disposition home or self-care (01) ==
LOC: ED 21:56
DX: T83.098A Other mechanical complication of other urinary catheter, initial encounter (principal); F31.9 Bipolar disorder, unspecified; Z90.49 Acquired absence of other specified parts of digestive tract; Z98.51 Tubal ligation status; Z79.899 Other long term (current) drug therapy
CPT/HCPCS: 51702; 81001; 87086; 99283

== ENCOUNTER 2020-04-06 08:55 | Emergency (ER) | payer MEDICARE ==
--- NOTE | 2020-04-06 09:49 | Emergency Department Report ---
ED Female HPI - General Chief complaint: Abdominal Pain Stated complaint: VAGINAL PAIN Time Seen by Provider: 04/06/20 09:25 Source: EMS Mode of arrival: Stretcher Limitations: Physical Limitation - History of Present Illness Initial comments: CC: "This catheter is causing me trouble." HPI: Mrs. Gordon is a 74 yo female with hx HTN, tremor, urinary incontinence, who presents with irritation from garcia catheter. ED nurse reported to me that catheter was tangled in patient's pubic region causing severe traction. Patient had immediate relief of discomfort once Garcia catheter was removed. Patient normally wears diaper for urinary incontinence. MD Complaint: other (Discomfort from Garcia catheter) -: Gradual Severity: moderate Quality: aching Consistency: constant Improves with: none - Related Data Previous Rx's Medication Instructions Recorded Last Taken Type Divalproex Dr [Rhona Alba] 250 mg PO BID #60 tablet 01/27/20 Unknown Rx levoFLOXacin [Levaquin] 750 mg PO QDAY #4 tablet 03/16/[address] [Rhona ALBA] 250 mg PO BID #60 tablet 03/18/20 Unknown Rx clonazePAM [KlonoPIN] 0.25 mg PO TID #90 tablet 03/18/20 Unknown Rx levoFLOXacin [Levaquin] 250 mg PO QDAY #7 tablet 03/23/20 Unknown Rx Allergies Allergy/AdvReac Type Severity Reaction Status Date / Time benztropine [From Cogentin] Allergy Unknown Verified 04/06/20 09:35 lithium Allergy Unknown Verified 04/06/20 09:35 ED Review of Systems ROS: Stated complaint: VAGINAL PAIN Other details as noted in HPI Constitutional: denies: fever, malaise Cardiovascular: denies: chest pain Gastrointestinal: denies: abdominal pain, nausea, vomiting, diarrhea ED Past Medical Hx - Past Medical History Previous Medical History?: Yes Hx Congestive Heart Failure: Yes Hx Renal Disease: No Hx Arthritis: No Hx Seizures: No Hx Psychiatric Treatment: Yes (Bipolar) Hx Dementia: No Additional medical history: bipolar, UTI - Surgical History Past Surgical History?: Yes Hx Cholecystectomy: No Hx Appendectomy: Yes Additional Surgical History: Tubal ligation - Social History Smoking Status: Unknown if ever smoked - Medications Home Medications: Home Medications Medication Instructions Recorded Confirmed Last Taken Type Divalproex Dr [Rhona Alba] 250 mg PO BID #60 tablet 01/27/20 03/13/20 Unknown Rx levoFLOXacin [Levaquin] 750 mg PO QDAY #4 tablet 03/16/[address] [DepaKOTE DR] 250 mg PO BID #60 tablet 03/18/20 Unknown Rx clonazePAM [KlonoPIN] 0.25 mg PO TID #90 tablet 03/18/20 Unknown Rx levoFLOXacin [Levaquin] 250 mg PO QDAY #7 tablet 03/23/20 Unknown Rx ED Physical Exam - General Limitations: Physical Limitation General appearance: alert, in no apparent distress, other (Pleasant insightful tremor) - Head Head exam: Present: atraumatic, normocephalic - Eye Eye exam: Present: normal appearance - ENT ENT exam: Present: mucous membranes moist - Neck Neck exam: Present: normal inspection - Respiratory Respiratory exam: Present: normal lung sounds bilaterally. Absent: respiratory distress, wheezes, rales, rhonchi - Cardiovascular Cardiovascular Exam: Present: regular rate, normal rhythm, normal heart sounds. Absent: systolic murmur, diastolic murmur, rubs, gallop - GI/Abdominal GI/Abdominal exam: Present: soft, normal bowel sounds. Absent: distended, tenderness, guarding - Extremities Exam Extremities exam: Present: normal inspection - Neurological Exam Neurological exam: Present: alert, oriented X3 - Psychiatric Psychiatric exam: Present: normal affect, normal mood - Skin Skin exam: Present: warm, dry, intact, normal color. Absent: rash ED Course Vital Signs 04/06/20 04/06/20 09:05 09:15 Temperature 97.6 F Pulse Rate 105 H Respiratory 20 18 Rate Blood Pressure 126/56 O2 Sat by Pulse 98 97 Oximetry ED Medical Decision Making - Medical Decision Making Discomfort from misplaced Garcia catheter. After catheter was removed, patient is now comfortable. Patient immediately desired transport back home after the catheter was removed. I do not detect any acute emergent condition otherwise. She has a soft nontender abdomen. She denies any other symptoms. Tachycardia resolved after catheter removed. Current heart rate 83 bpm. Patient desires to wear diaper instead of using Garcia catheter. She is discharged home in stable condition. Critical care attestation.: If time is entered above; I have spent that time in minutes in the direct care of this critically ill patient, excluding procedure time. ED Disposition Clinical Impression: Garcia catheter problem Disposition: DC-01 TO HOME OR SELFCARE Is pt being admited?: No Does the pt Need Aspirin: No Condition: Stable
[2020-04-06 10:07] VITALS: BP 114/60
== END 2020-04-06 10:37 | disposition home or self-care (01) ==
LOC: ED 08:55
DX: T83.098A Other mechanical complication of other urinary catheter, initial encounter (principal); I50.9 Heart failure, unspecified; F31.9 Bipolar disorder, unspecified; Z90.49 Acquired absence of other specified parts of digestive tract; Z98.51 Tubal ligation status; Z79.899 Other long term (current) drug therapy; Z88.8 Allergy status to other drugs, medicaments and biological substances
CPT/HCPCS: 99283

== ENCOUNTER 2020-04-29 11:16 | Emergency (ER) | payer MEDICARE ==
[2020-04-29 11:33] VITALS: BP 111/44
--- NOTE | 2020-04-29 12:14 | XRay Report ---
RIGHT SHOULDER 3 VIEWS [id number] INDICATION: right shoulder pain COMPARISON: CT chest dated 10/22/2019, portable chest x-rays 03/08/2023 [id number] FINDINGS: The chronic changes involving the right shoulder are again noted. What appears to be an old fracture fragment from the humeral head without union is again seen. Glenohumeral and acromioclavicu lar degenerative changes are noted. Inferior acromial spurring is moderately prominent. The humeral h ead is now subluxed inferiorly in relation to the glenoid though not fully dislocated. Calcifications are again seen in the area of the upper humerus which may represent myositis ossificans. No acute fr acture is identified. Signer Name: Braydon Paige MD Signed: 04/29/2020 12:10 PM Workstation Name: [id number]
--- NOTE | 2020-04-29 12:35 | Emergency Department Report ---
ED Extremity Problem HPI - General Chief complaint: Shoulder Injury Stated complaint: SHOULDER PAIN Time Seen by Provider: 04/29/20 12:26 Source: patient, EMS Mode of arrival: Ambulatory Limitations: Other - History of Present Illness Initial comments: Patient is a 74-year-old female who is presenting with some right shoulder discomfort. Patient states her shoulder is been dislocated for approximately 1 month. In review of the patient's chart patient suffered a fall injury with right-sided humeral head fracture/dislocation in February 2020. Patient has been seen at multiple emergency departments since that time. Patient claims that she was never given orthopedic follow-up in the sling that she has is too small. Patient here asking for larger sling and evaluation of her right shoulder. - Related Data Previous Rx's Medication Instructions Recorded Last Taken Type Divalproex [Christiano Alba] 250 mg PO BID #60 tablet 01/27/20 Unknown Rx levoFLOXacin [Levaquin] 750 mg PO QDAY #4 tablet 03/16/[address] Neftali ALBA] 250 mg PO BID #60 tablet 03/18/20 Unknown Rx clonazePAM [KlonoPIN] 0.25 mg PO TID #90 tablet 03/18/20 Unknown Rx levoFLOXacin [Levaquin] 250 mg PO QDAY #7 tablet 03/23/20 Unknown Rx Ibuprofen [Motrin 600 MG tab] 600 mg PO Q8H PRN #20 tablet 04/29/20 Unknown Rx Allergies Allergy/AdvReac Type Severity Reaction Status Date / Time benztropine [From Cogentin] Allergy Unknown Verified 04/06/20 09:35 lithium Allergy Unknown Verified 04/06/20 09:35 ED Review of Systems ROS: Stated complaint: SHOULDER PAIN Other details as noted in HPI Comment: All other systems reviewed and negative ED Past Medical Hx - Past Medical History Previous Medical History?: Yes Hx Congestive Heart Failure: Yes Hx Renal Disease: No Hx Arthritis: No Hx Seizures: No Hx Psychiatric Treatment: Yes (Bipolar) Hx Dementia: No Additional medical history: bipolar, UTI - Surgical History Past Surgical History?: Yes Hx Cholecystectomy: No Hx Appendectomy: Yes Additional Surgical History: Tubal ligation - Social History Smoking Status: Never Smoker Substance Use Type: Prescribed - Medications Home Medications: Home Medications Medication Instructions Recorded Confirmed Last Taken Type Divalproex Dr Neftali Alba] 250 mg PO BID #60 tablet 01/27/20 03/13/20 Unknown Rx levoFLOXacin [Levaquin] 750 mg PO QDAY #4 tablet 03/16/20 Unknown Rx Divalproex [Christaino ALBA] 250 mg PO BID #60 tablet 03/18/20 Unknown Rx clonazePAM [KlonoPIN] 0.25 mg PO TID #90 tablet 03/18/20 Unknown Rx levoFLOXacin [Levaquin] 250 mg PO QDAY #7 tablet 03/23/20 Unknown Rx Ibuprofen [Motrin 600 MG tab] 600 mg PO Q8H PRN #20 tablet 04/29/20 Unknown Rx ED Physical Exam - General Limitations: Other General appearance: alert, in no apparent distress - Head Head exam: Present: atraumatic, normocephalic - Eye Eye exam: Present: normal appearance, PERRL, EOMI - ENT ENT exam: Present: mucous membranes moist - Neck Neck exam: Present: normal inspection - Respiratory Respiratory exam: Present: normal lung sounds bilaterally. Absent: respiratory distress, wheezes, rales - Cardiovascular Cardiovascular Exam: Present: regular rate, normal rhythm, normal heart sounds. Absent: systolic murmur, diastolic murmur, rubs, gallop - GI/Abdominal GI/Abdominal exam: Present: soft, normal bowel sounds. Absent: distended, tenderness - Extremities Exam Extremities exam: Present: normal inspection, other (Patient with a deltoid deformity to the right shoulder. She has normal range of motion and strength at the elbow wrist and her hand. Patient has normal radial pulse and good capillary refill to all of her fingers. She is able to discern light touch on her right lower extremity as well.) - Back Exam Back exam: Present: normal inspection - Neurological Exam Neurological exam: Present: alert, oriented X3 - Psychiatric Psychiatric exam: Present: normal affect, normal mood - Skin Skin exam: Present: warm, dry, intact, normal color. Absent: rash ED Course Vital Signs 04/29/20 11:31 Temperature 98.3 F Pulse Rate 68 Respiratory 18 Rate Blood Pressure 111/44 O2 Sat by Pulse 96 Oximetry ED Medical Decision Making - Medical Decision Making Patient with a chronically dislocated right shoulder status post injury several months ago. Patient will be placed in a shoulder immobilizer and was given Dr. Goldman for follow-up. Patient states she is now in a usp and does have resources that will help her get to appointments Critical care attestation.: If time is entered above; I have spent that time in minutes in the direct care of this critically ill patient, excluding procedure time. ED Disposition Clinical Impression: Chronic dislocation of shoulder Qualifiers: Laterality: right Qualified Code(s): M24.411 - Recurrent dislocation, right shoulder Disposition: DC-01 TO HOME OR SELFCARE Is pt being admited?: No Does the pt Need Aspirin: No Condition: Stable Instructions: Shoulder Dislocation (ED) Referrals: NEFTALY GOLDMAN MD [Staff Physician] - 3-5 Days Time of Disposition: 12:35
== END 2020-04-29 13:32 | disposition home or self-care (01) ==
LOC: ED 11:16
DX: M24.411 Recurrent dislocation, right shoulder (principal); I50.9 Heart failure, unspecified; F31.9 Bipolar disorder, unspecified; Z98.51 Tubal ligation status; Z90.49 Acquired absence of other specified parts of digestive tract; Z88.6 Allergy status to analgesic agent; Z79.899 Other long term (current) drug therapy

== ENCOUNTER 2020-07-13 10:33 | Outpatient (CLI) | payer MEDICARE ==
--- NOTE | 2020-07-13 13:02 | Cat Scan Report ---
CT RIGHT shoulder WITHOUT CONTRAST INDICATION / CLINICAL INFORMATION: UNSPECIFIED FRACTURE OF SHAFT OF HUMERUS, RIGHT ARM. TECHNIQUE: All CT scans at this location are performed using CT dose reduction for ALARA by means of automated e xposure control. COMPARISON: Prior radiographs of the right shoulder dated 04/29/2020 FINDINGS: BONES: Chronic comminuted and displaced fracture noted of the right proximal humerus and glenoid. Int erval worsening of fragmentation and irregularity of the humeral head. There is increased cortical ir regularity of the proximal humerus with a large anterior callus formation. No osseous lesion. JOINT(S): Chronic posterior dislocation. Persistent large effusion. Interval development of numerous large ossified intra-articular bodies, the largest measuring approximately 2 cm. MUSCLES / TENDONS: No significant abnormality. SOFT TISSUES: Multiple small scattered consolidations are noted in the periphery of the right upper a nd lower lobe. Interval improvement of the dominant pulmonary contusion the right lower lobe. ADDITIONAL FINDINGS: None. IMPRESSION: 1. Chronic fractures of the right proximal humerus and glenoid with interval worsening of fragmentati on and irregularity of the proximal humerus. 2. 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 3. Persistent large joint effusion/hematoma with interval development of numerous ossified interartic ular bodies. 4. Significant interval improvement of previously noted right lung base contusion. There are new justina pheral consolidations in the periphery of the right upper and lower lobe which may represent an infec tious process. Signer Name: Marcus Rooney MD Signed: 07/13/2020 12:57 PM Workstation Name: [id number]
== END 2020-07-13 10:34 | disposition home or self-care (01) ==
LOC: CT 10:33
PROVIDERS: ATTEND Orthopaedic Surgery
DX: S42.141A Displaced fracture of glenoid cavity of scapula, right shoulder, initial encounter for closed fracture (principal); X58.XXXA Exposure to other specified factors, initial encounter; Y93.89 Activity, other specified; Y92.89 Other specified places as the place of occurrence of the external cause; Y99.8 Other external cause status

== ENCOUNTER 2020-08-01 11:01 | Emergency (ER) | payer MEDICARE ==
[2020-08-01 15:03] LABS: Basophils # (Auto) 0.1 K/mm3 (0.0-0.1); Basophils % (Auto) 0.8 % (0.0-1.8); Eosinophils % (Auto) 0.3 % (0.0-4.3); Hematocrit 44.5 % (30.3-42.9); Lymphocytes # (Auto) 1.6 K/mm3 (1.2-5.4); Lymphocytes % (Auto) 15.5 % (13.4-35.0); Mean Corpuscular HGB Conc 34 % (30-34); Mean Corpuscular Volume 92 fl (79-97); Monocytes # (Auto) 0.6 K/mm3 (0.0-0.8); Monocytes % (Auto) 6.1 % (0.0-7.3); Platelet Count 233 K/mm3 (140-440); Red Blood Count 4.81 M/mm3 (3.65-5.03); Red Cell Distribution Width 17.7 % (13.2-15.2)
--- NOTE | 2020-08-01 15:07 | Event Note ---
ED Screening Note Date of service: 08/01/20 Time: 15:03 ED Screening Note: 75-year-old female presents to the emergency room for headache and upset stomach with diarrhea x4 days. Patient states she took Tylenol this morning and did not help with her headache. Past medical history of tremors, bipolar and arthritis. Admits to nausea vomiting and diarrhea. This initial assessment/diagnostic orders/clinical plan/treatment(s) is/are subject to change based on patients health status, clinical progression and re- assessment by fellow clinical providers in the ED. Further treatment and workup at subsequent clinical providers discretion. Patient/guardian urged not to elope from the ED as their condition may be serious if not clinically assessed and managed. Initial orders include:
[2020-08-01 15:22] LABS: Alanine Aminotransferase 14 units/L (7-56); Albumin 4.2 g/dL (3.9-5); Blood Urea Nitrogen 9 mg/dL (7-17); Calcium 9.7 mg/dL (8.4-10.2); Hemolysis Index 20
[2020-08-01 15:44] LABS: BUN/Creatinine Ratio 18
[2020-08-02 05:49] LABS: Bilirubin,Urine NEG (Negative); Blood,Urine NEG (Negative); Color,Urine Yellow (Yellow); Hyaline Casts,Urine 6 /LPF; Mucus,Urine 1+ /HPF; Urobilinogen,Urine < 2.0 mg/dL (<2.0)
--- NOTE | 2020-08-02 06:18 | XRay Report ---
ACUTE ABDOMEN SERIES 3 VIEWS 0531 INDICATION: abd pain COMPARISON: Chest x-ray 03/11/2020 FINDINGS: Previous infiltrate in the right base has almost entirely cleared. Minimal residual density is seen laterally which may represent scarring. Calcified granulomata are seen in the lung bases. No pneumoperitoneum is seen. No evidence of bowel obstruction is seen. No bowel dilatation is noted. Ga s and stool are seen throughout the colon. Mild nonspecific air-fluid levels are seen in the right co mimi. No obvious urinary tract calculi are seen. Signer Name: Braydon Paige MD Signed: 08/02/2020 6:13 AM Workstation Name: [id number]
[2020-08-02 06:47] VITALS: BP 123/61
--- NOTE | 2020-08-02 07:41 | Emergency Department Report ---
ED General Adult HPI - General Chief complaint: Abdominal Pain Stated complaint: HEAD/ABDOMINAL PAIN Time Seen by Provider: 08/02/20 04:36 Source: patient Mode of arrival: Stretcher Limitations: No Limitations - History of Present Illness Initial comments: 75-year-old female patient presents with complaints of abdominal pain and headache x2 days. She has history of CHF and bipolar disorder. Past surgical history includes appendectomy. She reports some diarrhea, but denies any nausea/vomiting, melena/hematochezia, dysuria/hematuria/urinary frequency, or fever/chills/sweats. She states the headache is in the front portion of her head and face and rates it as a 9/10 in severity. Patient headache is unimproved with Tylenol. No head injury, numbness/tingling/weakness in her limbs, or thunderclap onset per patient. - Related Data Previous Rx's Medication Instructions Recorded Last Taken Type Divalproex Dr [Rhona Alba] 250 mg PO BID #60 tablet 01/27/20 Unknown Rx levoFLOXacin [Levaquin] 750 mg PO QDAY #4 tablet 03/16/[address] [Rhona ALBA] 250 mg PO BID #60 tablet 03/18/20 Unknown Rx clonazePAM [KlonoPIN] 0.25 mg PO TID #90 tablet 03/18/20 Unknown Rx levoFLOXacin [Levaquin] 250 mg PO QDAY #7 tablet 03/23/20 Unknown Rx Ibuprofen [Motrin 600 MG tab] 600 mg PO Q8H PRN #20 tablet 04/29/20 Unknown Rx Allergies Allergy/AdvReac Type Severity Reaction Status Date / Time benztropine [From Cogentin] Allergy Unknown Verified 04/06/20 09:35 lithium Allergy Unknown Verified 04/06/20 09:35 ED Review of Systems ROS: Stated complaint: HEAD/ABDOMINAL PAIN Other details as noted in HPI Constitutional: denies: chills, diaphoresis, fever, malaise, weakness Eyes: denies: vision change ENT: denies: throat pain Respiratory: denies: cough, shortness of breath Cardiovascular: denies: chest pain Endocrine: denies: excessive sweating Gastrointestinal: abdominal pain, diarrhea. denies: nausea, vomiting, constipation, hematemesis, melena, hematochezia Genitourinary: denies: urgency, dysuria, frequency, hematuria Musculoskeletal: denies: back pain Neurological: headache. denies: weakness, numbness, paresthesias, abnormal gait Psychiatric: denies: auditory hallucinations, visual hallucinations ED Past Medical Hx - Past Medical History Hx Congestive Heart Failure: Yes Hx Renal Disease: No Hx Arthritis: No Hx Seizures: No Hx Psychiatric Treatment: Yes (Bipolar) Hx Dementia: No Additional medical history: bipolar, UTI - Surgical History Hx Cholecystectomy: No Hx Appendectomy: Yes Additional Surgical History: Tubal ligation - Social History Smoking Status: Never Smoker - Medications Home Medications: Home Medications Medication Instructions Recorded Confirmed Last Taken Type Divalproex Dr [Depakote Dr] 250 mg PO BID #60 tablet 01/27/20 03/13/20 Unknown Rx levoFLOXacin [Levaquin] 750 mg PO QDAY #4 tablet 03/16/[address] [DepaKOTE DR] 250 mg PO BID #60 tablet 03/18/20 Unknown Rx clonazePAM [KlonoPIN] 0.25 mg PO TID #90 tablet 03/18/20 Unknown Rx levoFLOXacin [Levaquin] 250 mg PO QDAY #7 tablet 03/23/20 Unknown Rx Ibuprofen [Motrin 600 MG tab] 600 mg PO Q8H PRN #20 tablet 04/29/20 Unknown Rx ED Physical Exam - General Limitations: No Limitations General appearance: alert, in no apparent distress - Head Head exam: Present: atraumatic - Eye Eye exam: Present: normal appearance, PERRL. Absent: scleral icterus - Neck Neck exam: Present: normal inspection, full ROM - Respiratory Respiratory exam: Present: normal lung sounds bilaterally. Absent: respiratory distress - Cardiovascular Cardiovascular Exam: Present: regular rate, normal rhythm - GI/Abdominal GI/Abdominal exam: Present: soft, tenderness (mild, generalized). Absent: distended - Extremities Exam Extremities exam: Present: full ROM - Back Exam Back exam: Present: full ROM - Neurological Exam Neurological exam: Present: alert, oriented X3, normal gait. Absent: motor sensory deficit - Expanded Neurological Exam Expanded Sensory exam: Upper Extremity Light Touch: Normal, Lower Extremity Light Touch: Normal Motor strength exam: RUE: 5, LUE: 5, RLE: 5, LLE: 5 Best Eye Response (Tiffany): (4) open spontaneously Best Motor Response (Tiffany): (6) obeys commands Best Verbal Response ([place]): (5) oriented Tiffany Total: 15 - Psychiatric Psychiatric exam: Present: normal affect, normal mood - Skin Skin exam: Present: warm, dry, intact. Absent: rash ED Course Vital Signs 08/01/20 08/02/20 13:05 06:46 Temperature 97.6 F 98.0 F Pulse Rate 111 H 74 Respiratory 18 16 Rate Blood Pressure 117/92 Blood Pressure 123/61 [Left] O2 Sat by Pulse 97 97 Oximetry ED Medical Decision Making - Lab Data Result diagrams: 08/01/20 14:39 08/01/20 14:39 Lab Results 08/01/20 08/01/20 08/02/20 Range/Units 14:39 14:39 05:17 WBC 10.6 (4.5-11.0) K/mm3 RBC 4.81 (3.65-5.03) M/mm3 Hgb 15.0 H (10.1-14.3) gm/dl Hct 44.5 H (30.3-42.9) % MCV 92 (79-97) fl MCH 31 (28-32) pg MCHC 34 (30-34) % RDW 17.7 H (13.2-15.2) % Plt Count 233 (140-440) K/mm3 Lymph % (Auto) 15.5 (13.4-35.0) % [place] % (Auto) 6.1 (0.0-7.3) % Eos % (Auto) 0.3 (0.0-4.3) % Baso % (Auto) 0.8 (0.0-1.8) % Lymph # (Auto) 1.6 (1.2-5.4) K/mm3 [place] # (Auto) 0.6 (0.0-0.8) K/mm3 Eos # (Auto) 0.0 (0.0-0.4) K/mm3 Baso # (Auto) 0.1 (0.0-0.1) K/mm3 Seg Neutrophils % 77.3 H (40.0-70.0) % Seg Neutrophils # 8.2 H (1.8-7.7) K/mm3 Sodium 137 (137-145) mmol/L Potassium 4.2 (3.6-5.0) mmol/L Chloride 97.7 L (98-107) mmol/L Carbon Dioxide 24 (22-30) mmol/L Anion Gap 20 mmol/L BUN 9 (7-17) mg/dL Creatinine 0.5 L (0.6-1.2) mg/dL Estimated GFR > 60 ml/min BUN/Creatinine Ratio 18 % Glucose 79 (65-100) mg/dL Calcium 9.7 (8.4-10.2) mg/dL Total Bilirubin 0.30 (0.1-1.2) mg/dL AST 23 (5-40) units/L ALT 14 (7-56) units/L Alkaline Phosphatase 125 (35-129) units/L Total Protein 7.7 (6.3-8.2) g/dL Albumin 4.2 (3.9-5) g/dL Albumin/Globulin Ratio 1.2 % Lipase 19 (13-60) units/L Urine Color Yellow (Yellow) Urine Turbidity Clear (Clear) Urine pH 5.0 (5.0-7.0) Ur Specific [place] 1.015 (1.003-1.030) Urine Protein 30 mg/dl (Negative) mg/dL Urine Glucose (UA) Neg (Negative) mg/dL Urine Ketones 80 (Negative) mg/dL Urine Blood Neg (Negative) Urine Nitrite Neg (Negative) Urine Bilirubin Neg (Negative) Urine Urobilinogen < 2.0 (<2.0) mg/dL Ur Leukocyte Esterase Neg (Negative) Urine WBC (Auto) 4.0 (0.0-6.0) /HPF Urine RBC (Auto) 1.0 (0.0-6.0) /HPF U Epithel Cells (Auto) 3.0 (0-13.0) /HPF Hyaline Casts 6 /LPF Urine Mucus 1+ /HPF - Radiology Data Radiology results: report reviewed ACUTE ABDOMEN SERIES 3 VIEWS 0531 INDICATION: abd pain COMPARISON: Chest x-ray 03/11/2020 FINDINGS: Previous infiltrate in the right base has almost entirely cleared. Minimal residual density is seen laterally which may represent scarring. Calcified granulomata are seen in the lung bases. No pneumoperitoneum is seen. No evidence of bowel obstruction is seen. No bowel dilatation is noted. Gas and stool are seen throughout the colon. Mild nonspecific air-fluid levels are seen in the right colon. No obvious urinary tract calculi are seen. - Medical Decision Making 75-year-old female patient presents with complaints of abdominal pain and headache x2 days. She has history of CHF and bipolar disorder. Past sandy gical history includes appendectomy. She reports some diarrhea, but denies any nausea/vomiting, melena/hematochezia, dysuria/hematuria/urinary frequency, or fever/chills/sweats. She states the headache is in the front portion of her head and face and rates it as a 9/10 in severity. Patient headache is unimproved with Tylenol. No head injury, numbness/tingling/weakness in her limbs, or thunderclap onset per patient. On exam patient is noted to have a chronic tremor, but she is ANO x3 and neur ologically intact. No guarding or rebound is noted on exam of the abdomen. CBC, CMP, lipase, and UA are negative for any acute abnormalities. Abdominal x- ray shows mild nonspecific air-fluid levels in the colon. Vitals are normal. Offered patient CT of the abdomen and head for further evaluation of her symptoms-patient declined stating she would like to go home. She also declines any medication. Patient to sign out AMA. Patient informed to follow-up immediately with her primary care provider. Also discussed signs and symptoms that should prompt immediate return to the emergency department in detail with patient who verbalizes understanding. Critical care attestation.: If time is entered above; I have spent that time in minutes in the direct care of this critically ill patient, excluding procedure time. ED Disposition Clinical Impression: Frontal headache Abdominal pain Qualifiers: Abdominal location: generalized Qualified Code(s): R10.84 - Generalized abdominal pain Disposition: DC-07 LEFT AGAINST MED ADVICE Is pt being admited?: No Condition: Stable Instructions: Abdominal Pain (ED), Abdominal Pain, Adult, [id number], Tension Headache, Adult Referrals: PRIMARY CAREMD [Primary Care Provider] - 08/03/20
== END 2020-08-02 08:34 | disposition left against medical advice (07) ==
LOC: ED 11:01
DX: R51.9 Headache, unspecified (principal); R10.9 Unspecified abdominal pain; I50.9 Heart failure, unspecified; F31.9 Bipolar disorder, unspecified; Z90.49 Acquired absence of other specified parts of digestive tract; Z98.51 Tubal ligation status; Z88.8 Allergy status to other drugs, medicaments and biological substances; Z79.899 Other long term (current) drug therapy
CPT/HCPCS: 36415; 74022; 80053; 81001; 83690; 85025